=== PATIENT | male | born 1965 | race Caucasian/White ===

== ENCOUNTER → 2017-07-29 | Outpatient (CLI) | payer BC ==
--- NOTE | 2017-07-29 11:16 | FL ---
MODIFIED SWALLOW / DEGLUTITION STUDY DATE OF EXAM: 07/29/2017 CLINICAL HISTORY: 51-year-old male with dysphagia, history of sarcoidosis, coughing and choking episo leela. TECHNIQUE: Deglutition study is performed utilizing thin liquid barium, honey and nectar thick liqui d barium, barium thick applesauce, and barium coated cracker. Total fluoroscopy time: 1.06 minutes. Total images: 30 COMPARISON: None. FINDINGS: The oral and pharyngeal phases show satisfactory initiation and propagation with all modalities teste d. Normal mastication is seen with solid modalities tested. There is no evidence of penetration or aspiration with any modality tested. There is mild soft tissue thickening in the region of the hypop harynx which could be secondary to mucosal redundancy. No significant pharyngeal residue was apprecia domo. A very tiny Zenker's diverticulum is noted opposite the C6 level. AP swallowing images are saved . IMPRESSION: 1. No evidence for penetration or aspiration. 2. Mild soft tissue thickening in the hypopharynx could be secondary to mucosal redundancy. Consider direct visualization and/or CT soft tissue neck to exclude a mucosal space abnormality. 3. Tiny Zenker's diverticulum incidentally seen. Please refer to speech therapist notes for further details if necessary.
== END | disposition home or self-care (01) ==
LOC: RADFLMAIN 10:22
PROVIDERS: ATTEND Family Medicine
DX: J39.2 Other diseases of pharynx (principal)
CPT/HCPCS: 74230

== ENCOUNTER → 2017-08-21 | Outpatient (CLI) | payer BC ==
--- NOTE | 2017-08-21 08:28 | CT ---
EXAMINATION TYPE: CT soft tissue neck w con DATE OF EXAM: 08/21/2017 HISTORY: Abnormal findings on diagnostic images COMPARISON: Barium swallow dated 07/29/2016 CT DLP: 446.4 mGycm. Automated Exposure Control for Dose Reduction was Utilized. TECHNIQUE: CT scan of the neck is performed with IV Contrast, patient injected with 100 mL of Isovue 300, axial images are obtained, coronal and sagittal reformatted images are reviewed. FINDINGS: Airway: There is incidental note of tongue base prominence in relaxation, tonsillar prominence bilate rally, and abutting the soft palate narrowing the posterior oropharynx significantly with no remainin g airway seen on CT on series 3 image 65, 66 and 67. The airways diminutive directly cephalad and cau irene to this. Bilateral density and midline density seen within the vallecula, most commonly secretions. Piriform s inuses are symmetric. True and false vocal cords are unremarkable. Soft tissue prominence of the hypo pharynx is not redemonstrated on CT as seen on the prior GI examination. Parotid/submandibular glands: Small intraparotid lymph node within the left parotid gland. Otherwise the parotids are unremarkable. Carotid/Vascular Structures: No evidence of focal stenosis or aneurysmal outpouching. No significant atheromatous calcifications. Osseous Structures: Minimal multilevel degenerative changes of the cervical spine are noted. Other: The fossa Rosenmuller and torus tubarius are unremarkable. Lung apices are well aerated. There is a conventional anatomic branch pattern of the great vessels. Thyroid gland is unremarkable. IMPRESSION: 1. Short segment occlusion of the oropharynx due to relaxation and prominence of the tongue base and tonsillar prominence. 2. Densities seen within the vallecula bilaterally and within the midline, most commonly related to s ecretions. Direct visualization could be performed if there is further clinical concern. 3. No hypopharyngeal mass to correspond to the questionable finding on the prior exam.
== END | disposition home or self-care (01) ==
LOC: RADCTMAIN 07:01
PROVIDERS: ATTEND Family Medicine
DX: J39.2 Other diseases of pharynx (principal); R93.8 Abnormal findings on diagnostic imaging of other specified body structures
CPT/HCPCS: 70491; Q9967

== ENCOUNTER → 2022-05-30 | Outpatient (CLI) | payer BC ==
--- NOTE | 2022-05-30 13:23 | CT ---
EXAMINATION TYPE: CT chest wo/w con CT DLP: 806.30 mGycm, Automated exposure control for dose reduction was used. DATE OF EXAM: 05/30/2022 12:34 PM COMPARISON: None CLINICAL INDICATION:Male, 56 years old with history of D86.0 SARCOIDOSIS OF LUNG; SARCOIDOSIS OF LUNG . TECHNIQUE: Multiple axial images were obtained through the chest with and without IV contrast. Sagitt al and coronal reformats were created for review. Contrast used:70 mL of Isovue 300 without and with IV Contrast Oral contrast used: none. FINDINGS: LUNGS/ PLEURA: No focal consolidation, pneumothorax or pleural effusion. No evidence for significant pulmonary fibrosis, or groundglass opacities. Scattered peripheral reticulation along the dependent p ortion favored represent atelectasis. Right middle lobe 2 mm pulmonary nodule. (Series 7 image 38) AIRWAY: Patent and unremarkable. HEART: Size within normal limits. MEDIASTINUM: No gross evidence of adenopathy. Partially calcified scattered mediastinal lymph nodes w hich are not enlarged. VASCULATURE: No aortic aneurysm. MUSCULOSKELETAL: No acute osseous abnormalities SOFT TISSUES/LYMPH NODES: Unremarkable. LOWER NECK: No significant findings. UPPER ABDOMEN: No significant findings. IMPRESSION: 1. Partially calcified mediastinal lymph nodes consistent with sequela of chronic granulomatous dise ase such as sarcoidosis. No lymphadenopathy identified. 2. Mild peripheral nonspecific reticulation favored to represent atelectasis along the dependent por tion of the lungs.
== END | disposition home or self-care (01) ==
LOC: RADCTMAIN 11:28
PROVIDERS: ATTEND Family Medicine
DX: D86.0 Sarcoidosis of lung (principal); J98.11 Atelectasis
CPT/HCPCS: 71270; Q9967

== ENCOUNTER → 2023-01-08 | Outpatient (CLI) | payer BC ==
--- NOTE | 2023-01-08 09:54 | XR ---
EXAMINATION TYPE: XR lumbosacral spine min 4V DATE OF EXAM: 01/08/2023 9:45 AM INDICATION: Patient age:Male; 57 years old; Reason for study: [id number] LBP; [facility]. COMPARISON: None TECHNIQUE: Frontal, lateral , bilateral oblique and coned in L5-S1 lateral views of the spine. FINDINGS: There are 5 lumbar type vertebral bodies identified. No evidence of any acute osseous patho logy. No evidence of loss of vertebral body height is seen. Multilevel degenerative disc disease wit h disc space narrowing, endplate sclerosis, and anterior osteophytosis. Minimal retrolisthesis of L2 on L3. Minimal grade 1 anterolisthesis of L4 on L5. Multilevel facet arthropathy most pronounced at L 4-L5. Minimal levo curvature of the lumbar spine with apex at L3. Atherosclerotic calcification of th e aorta. IMPRESSION: 1. No acute process. 2. Mild multilevel degenerative disc disease and facet arthropathy. 3. Minimal retrolisthesis of L2 on L3 with minimal grade 1 anterolisthesis of L4 on L5.
== END | disposition home or self-care (01) ==
LOC: RADXRYALE 09:30
PROVIDERS: ATTEND Family Medicine
DX: M51.36 Other intervertebral disc degeneration, lumbar region (principal); M43.16 Spondylolisthesis, lumbar region; M47.816 Spondylosis without myelopathy or radiculopathy, lumbar region
CPT/HCPCS: 72110